=== PATIENT | male | born 1950 | race African-American/Black ===

== ENCOUNTER 2023-02-04 15:01 | Inpatient (IN) | payer OTHER ==
[2023-02-04] MEDS ORDERED: Diazepam 5 MG TAB PO PRN (19:02)
[2023-02-04] MEDS ORDERED: Communication Order-Pharmacy FS PRN (19:02)
[2023-02-04 19:12] LABS: #Eosinphils 0.2 thou/uL (0.0-0.7); #Lymphocytes 1.5 thou/uL (1.20-3.40); #Monocytes 0.4 thou/uL (0.11-0.59); #Neutrophils 2.6 thou/uL (1.40-6.50); %Basophils 0.6 % (0.0-1.0); %Eosinophils 3.4 % (0.0-10.0); %Lymphocytes 31.6 % (21.0-51.0); %Monocytes 9.5 % (0.0-10.0); Hemoglobin 10.9 g/dL (14.0-18.0); Mean Corpuscular HGB CONC 32.8 g/dL (32.0-36.0); Mean Corpuscular Hemoglobin 29.8 pg (27.0-31.0); Mean Platelet Volume 7.7 fL (7.4-10.4); Platelet Count 175 10x3/uL (130-400); RBC Distribution Width 11.5 % (11.5-14.5); Red Blood Cell (RBC) Count 3.67 mill/uL (4.70-6.10); White Blood Cell (WBC) Count 4.7 10x3/uL (4.8-10.8)
[2023-02-04] MEDS ORDERED: Aspirin Chewable 81 MG TAB PO SCH (19:15)
[2023-02-04] MEDS ORDERED: Heparin 25,000 units/D5W 500 ML IVPB SCH (19:15)
[2023-02-04] MEDS ORDERED: Heparin 10,000 UNITS/ 10 ML VIAL SLOW IVP SCH (19:15)
[2023-02-04 19:20] LABS: Hemoglobin A1c 5.2 % (4.0-6.0)
[2023-02-04 19:34] LABS: ALT (SGPT) 14 U/L (8-55); AST (SGOT) 76 U/L (5-34); Albumin 3.6 g/dL (3.4-4.8); Alkaline Phosphatase 68 U/L (40-110); Anion Gap 15 mmol/L (10-20); BUN (Urea Nitrogen) 18 mg/dL (8.4-25.7); Bilirubin, Total 0.6 mg/dL (0.2-1.2); Calc. Creatinine Clearance 77 mL/min (70-130); Calcium 9.1 mg/dL (7.8-10.44); Carbon Dioxide 19 mmol/L (23-31); Chloride 106 mmol/L (98-107); Estimated GFR 63; Globulin 4.2 g/dL (2.4-3.5); Glucose 115 mg/dL (83-110); Potassium 3.9 mmol/L (3.5-5.1); Protein, Total 7.8 g/dL (5.8-8.1); Sodium 136 mmol/L (136-145)
[2023-02-04 19:44] LABS: Troponin I 10.973 ng/mL (< 0.028)
[2023-02-04] MEDS: Heparin 25,000 units/D5W 500 ML IV SCH (19:47)
[2023-02-04 20:06] LABS: Hemoglobin 10.9 g/dL (14.0-18.0); Platelet Count 182 10x3/uL (130-400)
[2023-02-04] MEDS ORDERED: Metoprolol Tartrate 5 MG/5 ML VIAL IVP PRN (20:20)
[2023-02-04] MEDS ORDERED: Carvedilol 6.25 MG TAB PO SCH (20:30)
[2023-02-04] MEDS ORDERED: Atorvastatin Calcium 40 MG TAB PO SCH (21:00)
[2023-02-04 21:23] LABS: PTT 129.8 sec (22.9-36.1)
[2023-02-04] MEDS: Terazosin HCl 5 MG CAP PO SCH (21:41)
[2023-02-04] MEDS: Atorvastatin Calcium 20 MG TAB PO SCH (21:41)
[2023-02-05 05:15] LABS: #Eosinphils 0.1 thou/uL (0.0-0.7); #Lymphocytes 1.9 thou/uL (1.20-3.40); #Monocytes 0.6 thou/uL (0.11-0.59); %Basophils 0.3 % (0.0-1.0); %Eosinophils 3.2 % (0.0-10.0); %Lymphocytes 40.2 % (21.0-51.0); %Neutrophils 43.3 % (42.0-75.0); Mean Corpuscular HGB CONC 34.8 g/dL (32.0-36.0); Mean Corpuscular Hemoglobin 31.8 pg (27.0-31.0); Mean Corpuscular Volume 91.3 fl (78.0-98.0); Mean Platelet Volume 8.3 fL (7.4-10.4); Platelet Count 162 10x3/uL (130-400); RBC Distribution Width 11.5 % (11.5-14.5); Red Blood Cell (RBC) Count 3.15 mill/uL (4.70-6.10); White Blood Cell (WBC) Count 4.7 10x3/uL (4.8-10.8)
[2023-02-05 05:45] LABS: ALT (SGPT) 13 U/L (8-55); AST (SGOT) 57 U/L (5-34); Albumin 3.2 g/dL (3.4-4.8); Alkaline Phosphatase 60 U/L (40-110); Anion Gap 12 mmol/L (10-20); BUN (Urea Nitrogen) 21 mg/dL (8.4-25.7); Bilirubin, Total 0.6 mg/dL (0.2-1.2); Calc. Creatinine Clearance 65 mL/min (70-130); Calcium 8.9 mg/dL (7.8-10.44); Carbon Dioxide 21 mmol/L (23-31); Chloride 105 mmol/L (98-107); Estimated GFR 52; Globulin 3.7 g/dL (2.4-3.5); Glucose 87 mg/dL (83-110); Potassium 4.2 mmol/L (3.5-5.1); Protein, Total 6.9 g/dL (5.8-8.1); Sodium 134 mmol/L (136-145)
[2023-02-05 08:44] LABS: Troponin I 9.497 ng/mL (< 0.028)
[2023-02-05] MEDS ORDERED: Amlodipine 10 MG TAB PO SCH (09:00)
[2023-02-05] MEDS: Carvedilol 6.25 MG TAB PO SCH ×2 (09:23→17:40)
[2023-02-05] MEDS: Lisinopril 20 MG TAB PO SCH (09:24)
[2023-02-05] MEDS: Furosemide 40 MG TAB PO SCH ×2 (09:24→14:12)
[2023-02-05] MEDS: Folic Acid 1 MG TAB PO SCH (09:24)
[2023-02-05] MEDS: Ferrous Sulfate 325 MG TAB PO SCH (09:24)
[2023-02-05] MEDS: Allopurinol 100 MG TAB PO SCH (09:24)
[2023-02-05] MEDS: Aspirin 81 mg Enteric Coated Tablet PO SCH (09:25)
[2023-02-05] MEDS: Venlafaxine HCl XR 75 MG CAP PO SCH (09:25)
[2023-02-05 12:20] LABS: Amphetamine Not Detected (NotDetected); Barbiturates Screen Not Detected (NotDetected); Benzodiazepine Screen Not Detected (NotDetected); Cocaine Metabolite Screen Not Detected (NotDetected); Methadone Not Detected (NotDetected); Methamphetamine Not Detected (NotDetected); Opiate Screen Not Detected (NotDetected); Oxycodone Screen Not Detected (NotDetected); Phencyclidine (PCP) Not Detected (NotDetected); THC/Cannabinoid Screen Not Detected (NotDetected); Tricyclic Screen Not Detected (NotDetected)
[2023-02-05 13:30] VITALS: BMI 32.3
[2023-02-05] MEDS: Terazosin HCl 5 MG CAP PO SCH (20:01)
[2023-02-05] MEDS: Atorvastatin Calcium 20 MG TAB PO SCH (20:01)
[2023-02-06] MEDS: Heparin 25,000 units/D5W 500 ML IV SCH (01:46)
[2023-02-06 05:06] LABS: ALT (SGPT) 12 U/L (8-55); AST (SGOT) 44 U/L (5-34); Albumin 3.5 g/dL (3.4-4.8); Alkaline Phosphatase 62 U/L (40-110); Anion Gap 13 mmol/L (10-20); BUN (Urea Nitrogen) 30 mg/dL (8.4-25.7); Bilirubin, Total 0.5 mg/dL (0.2-1.2); Calc. Creatinine Clearance 53 mL/min (70-130); Calcium 9.2 mg/dL (7.8-10.44); Carbon Dioxide 21 mmol/L (23-31); Chloride 103 mmol/L (98-107); Estimated GFR 41; Globulin 4.1 g/dL (2.4-3.5); Glucose 99 mg/dL (83-110); Potassium 4.1 mmol/L (3.5-5.1); Protein, Total 7.6 g/dL (5.8-8.1); Sodium 133 mmol/L (136-145)
[2023-02-06 05:09] LABS: Band 3 % (5-11); Eosinophils 2 % (0-10); Hemoglobin 10.7 g/dL (14.0-18.0); Hypochromia SLIGHT = 6-15 cells (100X) (0-5/hpf); Lymphocytes 33 % (21-51); MDiff Complete? YES; Mean Corpuscular HGB CONC 33.8 g/dL (32.0-36.0); Mean Corpuscular Hemoglobin 30.9 pg (27.0-31.0); Mean Corpuscular Volume 91.2 fl (78.0-98.0); Monocytes 10 % (0-10); Neutrophil 52 % (42-75); Platelet Count 168 10x3/uL (130-400); Platelet Morphology Comment Appears Adequate; RBC Distribution Width 11.6 % (11.5-14.5); Red Blood Cell (RBC) Count 3.48 mill/uL (4.70-6.10); White Blood Cell (WBC) Count 4.3 10x3/uL (4.8-10.8)
[2023-02-06] MEDS ORDERED: Carvedilol 6.25 MG TAB PO SCH (08:00)
[2023-02-06] MEDS: Folic Acid 1 MG TAB PO SCH (08:44)
[2023-02-06] MEDS: Lisinopril 20 MG TAB PO SCH (08:44)
[2023-02-06] MEDS: Aspirin 81 mg Enteric Coated Tablet PO SCH (08:44)
[2023-02-06] MEDS: Allopurinol 100 MG TAB PO SCH (08:44)
[2023-02-06] MEDS: Venlafaxine HCl XR 75 MG CAP PO SCH (08:44)
[2023-02-06] MEDS: Ferrous Sulfate 325 MG TAB PO SCH (08:45)
[2023-02-06] MEDS ORDERED: Methimazole 10 MG TAB PO SCH (09:00)
[2023-02-06] MEDS: Carvedilol 6.25 MG TAB PO SCH (10:32)
[2023-02-06 13:31] LABS: Anion Gap 14 mmol/L (10-20); BUN (Urea Nitrogen) 28 mg/dL (8.4-25.7); Calc. Creatinine Clearance 60 mL/min (70-130); Calcium 9.2 mg/dL (7.8-10.44); Carbon Dioxide 21 mmol/L (23-31); Chloride 103 mmol/L (98-107); Estimated GFR 48; Glucose 116 mg/dL (83-110); Potassium 4.1 mmol/L (3.5-5.1); Sodium 134 mmol/L (136-145)
[2023-02-06] MEDS: Carvedilol 25 MG TAB PO SCH (17:00)
[2023-02-06] MEDS: Atorvastatin Calcium 20 MG TAB PO SCH (22:49)
[2023-02-06] MEDS: Terazosin HCl 5 MG CAP PO SCH (22:49)
[2023-02-07] MEDS: Heparin 25,000 units/D5W 500 ML IV SCH (04:36)
[2023-02-07 05:38] LABS: ALT (SGPT) 11 U/L (8-55); AST (SGOT) 33 U/L (5-34); Albumin 3.3 g/dL (3.4-4.8); Alkaline Phosphatase 62 U/L (40-110); Anion Gap 14 mmol/L (10-20); BUN (Urea Nitrogen) 25 mg/dL (8.4-25.7); Bilirubin, Total 0.5 mg/dL (0.2-1.2); Calc. Creatinine Clearance 66 mL/min (70-130); Calcium 9.2 mg/dL (7.8-10.44); Carbon Dioxide 20 mmol/L (23-31); Chloride 104 mmol/L (98-107); Estimated GFR 53; Globulin 3.9 g/dL (2.4-3.5); Glucose 93 mg/dL (83-110); Protein, Total 7.2 g/dL (5.8-8.1); Sodium 134 mmol/L (136-145)
[2023-02-07] MEDS ORDERED: CEFAZOLIN 2 GM in Sodium Chloride 0.9% 100 ML IVPB SCH (06:00)
[2023-02-07 06:31] LABS: Eosinophils 7 % (0-10); Hemoglobin 10.2 g/dL (14.0-18.0); Lymphocytes 35 % (21-51); MDiff Complete? YES; Mean Corpuscular HGB CONC 33.9 g/dL (32.0-36.0); Mean Corpuscular Hemoglobin 31.1 pg (27.0-31.0); Mean Corpuscular Volume 91.7 fl (78.0-98.0); Mean Platelet Volume 7.8 fL (7.4-10.4); Monocytes 16 % (0-10); Neutrophil 41 % (42-75); Platelet Count 166 10x3/uL (130-400); Platelet Morphology Comment Appears Adequate; RBC Distribution Width 11.6 % (11.5-14.5); RBC Morphology Normal; Red Blood Cell (RBC) Count 3.26 mill/uL (4.70-6.10); White Blood Cell (WBC) Count 4.6 10x3/uL (4.8-10.8)
[2023-02-07] MEDS: Ferrous Sulfate 325 MG TAB PO SCH (08:51)
[2023-02-07] MEDS: Carvedilol 25 MG TAB PO SCH ×2 (08:51→17:08)
[2023-02-07] MEDS: Lisinopril 20 MG TAB PO SCH (08:52)
[2023-02-07] MEDS ORDERED: Amlodipine 10 MG TAB PO SCH (09:00)
[2023-02-07] MEDS ORDERED: Heparin 10,000 UNITS/ 10 ML VIAL SLOW IVP SCH (10:15)
[2023-02-07 13:32] LABS: Anion Gap 14 mmol/L (10-20); BUN (Urea Nitrogen) 22 mg/dL (8.4-25.7); Calc. Creatinine Clearance 71 mL/min (70-130); Calcium 9.6 mg/dL (7.8-10.44); Carbon Dioxide 20 mmol/L (23-31); Chloride 103 mmol/L (98-107); Estimated GFR 58; Glucose 109 mg/dL (83-110); Sodium 133 mmol/L (136-145)
[2023-02-07 20:25] VITALS: BP 180/84; TEMP 98.5
[2023-02-07] MEDS: Atorvastatin Calcium 20 MG TAB PO SCH (20:27)
== END 2023-02-07 21:31 | disposition short-term general hospital (02) | DRG 280 ==
LOC: EEVIPCON → 2NO 17:34
PROVIDERS: ADMIT Student in an Organized Health Care Education/Training Program; ATTEND Student in an Organized Health Care Education/Training Program
PROC: 4A023N7 Measurement of Cardiac Sampling and Pressure, Left Heart, Percutaneous Approach (ICD-10-PCS; principal; 2023-02-04)
PROC: B2111ZZ Fluoroscopy of Multiple Coronary Arteries using Low Osmolar Contrast (ICD-10-PCS; 2023-02-04)
PROC: B2151ZZ Fluoroscopy of Left Heart using Low Osmolar Contrast (ICD-10-PCS; 2023-02-04)
DX: I21.4 Non-ST elevation (NSTEMI) myocardial infarction (principal); J96.01 Acute respiratory failure with hypoxia; I13.0 Hypertensive heart and chronic kidney disease with heart failure and stage 1 through stage 4 chronic kidney disease, or unspecified chronic kidney disease; I50.32 Chronic diastolic (congestive) heart failure; N17.9 Acute kidney failure, unspecified; I25.10 Atherosclerotic heart disease of native coronary artery without angina pectoris; D63.1 Anemia in chronic kidney disease; I08.3 Combined rheumatic disorders of mitral, aortic and tricuspid valves; E05.90 Thyrotoxicosis, unspecified without thyrotoxic crisis or storm; E04.1 Nontoxic single thyroid nodule; N18.9 Chronic kidney disease, unspecified; K74.60 Unspecified cirrhosis of liver; M10.9 Gout, unspecified; E11.22 Type 2 diabetes mellitus with diabetic chronic kidney disease; Z79.899 Other long term (current) drug therapy; Z79.82 Long term (current) use of aspirin; Z87.891 Personal history of nicotine dependence; E78.00 Pure hypercholesterolemia, unspecified; R00.1 Bradycardia, unspecified
CPT/HCPCS: 36415; 36416; 71045; 76536; 80048; 80053; 80061; 80306; 82553; 83036; 83735; 84439; 84443; 84481; 84484; 84550; 85025; 85730; 86850; 86900; 86901; 93005; 93010; 93306; 93459; 94760; 96372; 96374; 97139; 99152; 99153; C1760; C1769; J0153; J1644; J1650; J2001; J2250; J3010; J7050; Q9967